=== PATIENT | male | born 1975 | race Caucasian/White ===

== ENCOUNTER → 2018-09-26 15:27 | Outpatient (CLI) | payer OTHER, SELFPAY ==
[2016-02-06 18:03] VITALS: BMI 28.6
--- NOTE | 2018-09-26 12:30 | SEP_PTH ---
PATIENT: FINA HUNT LOC: [facility] U#:[id number] AGE/SX: 49/M ROOM: RE09/26/[address]: Dr. Pipo Meyers MD : 1975 BED: DIS: SPEC #: [id number] RECD: 09/26/18 15:16 STATUS: NATY JABARI #: [id number] PAMELLA: 09/26/18 12:[address]: Pipo Meyers DEPT: SURGICAL PATHOLOGY RECD BY: Lorenzo Birmingham ENTERED: 09/27/18 14:09 SP TYPE: SEPTUM OTHR DR: Dr. Jakob Bello, [facility] Tissues: Nasal septum, NOS Procedures: Decalcification bone/plaque Surgery Specimen Level III HEADER OPERATION: Septoplasty, submucous resection inferior turbinates PRE-OP DIAGNOSIS: Nasal congestion, hypertrophy of nasal turbinates, deviated nasal septum TISSUE SUBMITTED: Septum MICROSCOPIC DIAGNOSIS Nasal cartilage and bone, septoplasty: Hyaline cartilage and bone with focal reparative and reactive change (clinically deviated septum). AM:lisette 09/30/18 MICROSCOPIC DESCRIPTION Slides are reviewed. GROSS DESCRIPTION Received is one container labeled with the patient's name and not further designated. The specimen consists of multiple fragments of cartilage and bone that in aggregate measure 5 x 3 x 0.3 cm. The entire specimen is submitted in two cassettes after decalcification. / SJ:lisette 09/27/18 TC:5 CPT: 72915, 49290
== END ==
PROVIDERS: Family Provider Student in an Organized Health Care Education/Training Program; PCP Student in an Organized Health Care Education/Training Program; Referring Provider Otolaryngology; Visit Provider Otolaryngology
DX: J34.3 Hypertrophy of nasal turbinates (principal); J34.2 Deviated nasal septum; R09.81 Nasal congestion
CPT/HCPCS: 88304; 88311

== ENCOUNTER 2019-12-22 10:30 | Emergency (ER) | payer OTHER, SELFPAY ==
[2019-12-22 10:31] VITALS: BP 158/89; PULSE 64; RESP 16; TEMP 36.2; O2SAT 98; BMI 29.1
--- NOTE | 2019-12-22 10:42 | ED.DCSUM_ITS ---
History of Present Illness Informant: Patient - Abdominal Pain/Flank Pain Onset: Yesterday Context: Gradual Onset Timing: Continuous Quality: Burning Location: Epigastric Current Severity: Moderate Maximum Severity: Severe Worsened by: Food Relieved by: Remaining Still - Nausea/Vomiting/Emesis GI Symptom: Nausea. Negative for: Vomiting Onset: Today - Diarrhea/Melena/Hematochezia GI Symptom: Hematochezia. Negative for: Diarrhea, Melena Onset: Today Stool Quality: KLAUDIA per rectum Severity: Mild Associated Symptoms: Negative for: Dysuria, Frequency, Hematuria, Urgency Narrative: 43-year-old male who denies any significant past medical history presents to the emergency department with epigastric abdominal pain. Started 2 weeks ago has been intermittent. He also has been having bright red blood per rectum. He noticed it this morning when he went to have a bowel movement. It was in the toilet bowl. He has not had any bleeding since that time. He is not lightheaded or dizzy. He is not on a blood thinner. He is not a fever. Denies any vomiting. Denies back pain. He is not lightheaded or dizzy. No recent travel. No sick contacts. No recent antibiotic use. History of similar symptoms a few years ago when he was diagnosed with Salmonella and colitis Prior similar symptoms: Yes Recent Illness/Hospitalization: No <Kenrick Caba - Last Filed: 12/22/19 12:42> <Derek Gallagher - Last Filed: 12/22/19 15:27> Chief Complaint: Abd Pain Past Medical History Prior records reviewed: Yes Past Medical History: None Surgical History: cholecystectomy Lives: With Family Smoking Status: Former smoker Alcohol: Occasional Drugs: None - Family History Maternal Family History: Reports: Diabetes Paternal Family History: Reports: No pertinent history <Kenrick Caba - Last Filed: 12/22/19 12:42> <Derek Gallagher - Last Filed: 12/22/19 15:27> - Allergies and Home Meds Allergies/Adverse Reactions: Allergies Penicillins [PCN] Allergy (Verified 12/22/19 10:31) Unknown Primary Care Physician: Jakob Bello DO [Primary Care Provider] - 12/25/19 Review of Systems All systems negative except as indicated General: Denies: Chills, Fever, Sweats Eyes: Denies: Visual changes - bilaterally, Diplopia ENT: Denies: Rhinorrhea, Sore throat Cardiovascular: Denies: Chest pain, Palpitations Respiratory: Denies: Dyspnea, Cough, Dyspnea on exertion Gastrointestinal: Reports: Abdominal pain, Nausea, Hematochezia. Denies: Vomiting, Diarrhea, Constipation, Melena Genitourinary: Denies: Dysuria, Hematuria, Frequency Musculoskeletal: Denies: Back pain, Extremity Pain Skin: Denies: Rash, Wounds Neurological: Denies: Headache, Weakness, Numbness <Kenrick Caba - Last Filed: 12/22/19 12:42> Physical Exam Vital Signs/Narrative: Vital Signs Temp Pulse Resp BP Pulse Ox 12/22/19 10:31 97.2 F L 64 16 158/89 H 98 Inital Vital Signs reviewed: Yes General: Well nourished, Well developed, No Acute Distress Head: Normocephalic, Atraumatic Eyes: Perrl, EOMI ENT: Moist mucous membranes, No rhinorrhea Neck: Supple, Nontender Cardiovascular: Regular rate, Regular rhythm, No murmurs Respiratory: No distress, CTA bilaterally, Chest nontender Abdomen: Soft, Nondistended, Normal bowel sounds, Tender - Epigastric tenderness to palpation. Negative for: Guarding, Rebound tenderness Back: Nontender, Normal Inspection Extremities: Nontender, No edema Skin: Normal color, No rash Neurological: Alert, Oriented x3, Cranial nerves II-XII grossly intact, Normal Strength, Normal Sensation Psychological: Normal affect, Normal Mood <Kenrick Caba - Last Filed: 12/22/19 12:42> Vital Signs/Narrative: Vital Signs Resp 12/22/19 12:36 18 <Derek Gallagher - Last Filed: 12/22/19 15:27> Diagnostic/Tx/Re-eval CT: Abdomen and Pelvis Impressions Abdomen/Pelvis CT 12/22/19 10:47 IMPRESSION: Fatty infiltration of the liver. Electronically Signed: Wayne Birch, at 11:53 EDT , Service support , 12/22/19 10:47 Abdomen/Pelvis W IV Cont ONLY [CT] Stat Laboratory Results 12/22/19 12/22/19 12/22/19 10:40 10:50 10:50 WBC 7.3 RBC 4.91 Hgb 15.4 Hct 45.2 MCV 92.1 MCH 31.4 MCHC 34.1 RDW Std Deviation 44.0 H RDW Coeff of Asiya 13.0 Plt Count 205 MPV 11.1 Immature Gran % (Auto) 0.400 Neut % (Auto) 64.3 Lymph % (Auto) 25.2 Canadian % (Auto) 6.7 Eos % (Auto) 3.0 Baso % (Auto) 0.4 Absolute Neuts (auto) 4.7 Absolute Lymphs (auto) 1.83 Nucleated RBC % 0 Sodium 140 Potassium 4.1 Chloride 110 H Carbon Dioxide 25.0 Anion Gap 5 BUN 10 Creatinine 1.07 Estim Creat Clear Calc 97.71 Est GFR (MDRD) Af Amer 97 Est GFR (MDRD) Non-Af 80 BUN/Creatinine Ratio 9.3 L Glucose 87 Calcium 8.9 Total Bilirubin 0.30 AST 22 ALT 39 Alkaline Phosphatase 113 Total Protein 8.0 Albumin 3.7 Globulin 4.3 H Albumin/Globulin Ratio 0.9 Lipase 82 Urine Color Yellow Urine Clarity Clear Urine pH 7.0 Ur Specific [place] 1.005 Urine Protein Negative Urine Glucose (UA) Normal Urine Ketones Negative Urine Occult Blood Negative Urine Nitrite Negative Urine Bilirubin Negative Urine Urobilinogen Normal Ur Leukocyte Esterase Negative Urine RBC 0 SEEN Urine WBC 0 SEEN Ur Squamous Epith Cells 0 SEEN Urine Bacteria 0 SEEN Urine Mucus 0 SEEN - Medical Decision Making Patient's laboratory work-up was unremarkable. His blood counts are stable. He has not had any bleeding during his stay in the emergency department is over [address] scan was unremarkable as well. He was reassured. He has a history of hemorrhoids. We feel his symptoms could be due to internal hemorrhoids. He has been constipated. Therefore we will prescribe him MiraLAX and Colace to increase his fluid intake and follow-up with his doctor on Wednesday or return to the emergency department for worsening symptoms which we discussed. Repeat exam his abdomen is soft and nontender and the patient is tolerating by mouth at this time. <Kenrick Caba - Last Filed: 12/22/19 12:42> - Medical Decision Making Patient was seen with me. I did a [id number] examination with the patient. Patient presents with abdominal pain and rectal bleeding. Patient states that this has been intermittent. Patient noted red blood in the stool. Patient denies any fevers or chills. Patient denies any nausea or vomiting. Patient denies any chest pain or shortness of breath. Vital signs are stable. Patient is afebrile. Patient is in no acute distress. Oral mucosa is pink and moist. Neck is supple. Trachea is midline. There is no JVD. Heart was regular rate and rhythm. Lungs are clear and equal bilaterally. Abdomen is soft. Bowel sounds are normal. There is mild tenderness. There is no rebound or guarding noted. CBC is normal. Patient is not anemic. CT scan of the abdomen pelvis was obtained. There is no acute abnormality. Patient was feeling better on reevaluation. Patient was advised that his bleeding could be due to internal hemorrhoids. Patient was instructed to follow-up with his primary care physician in 5 to 7 days. Patient understood and was agreeable with the plan. All questions were answered. <Derek Gallagher - Last Filed: 12/22/19 15:27> ED Disposition <Kenrick Caba - Last Filed: 12/22/19 12:42> <Derek Gallagher - Last Filed: 12/22/19 15:27> - Plan for ED Patient: Disposition: Home or Assisted Living Diagnosis: Blood in stool, Abdominal pain, GERD (gastroesophageal reflux disease) Instructions: ED Hematochezia Stable Prescriptions: Docusate Sodium [Colace] 100 mg PO BID #10 cap Prescription Printed Polyethylene Glycol 3350 [Miralax] 17 gm PO QHS #14 packet Prescription Printed Famotidine [Pepcid] 20 mg PO BID #28 tab Prescription Printed Referrals: Jakob Bello DO [Primary Care Provider] - 12/25/19
[2019-12-22 10:46] LABS: Bacteria 0 SEEN /hpf (None Seen); Mucous, Urine 0 SEEN /hpf (<or=2+); Red Blood Cells-Urine 0 SEEN /hpf (0-5); Squamous Epithelial Cells - UA 0 SEEN /hpf (0-5); White Blood Cells 0 SEEN /hpf (0-5)
--- NOTE | 2019-12-22 10:47 | CT_ITS ---
STUDY: CT ABDOMEN AND PELVIS WITH CONTRAST REASON FOR EXAM: Male, 43 years old. ABDOMINAL PAIN WITH RECTAL BLEEDING RADIATION DOSAGE (If Supplied By Facility): CTDIvol = ( 11.96 ) mGy, DLP = ( 595.16 ) mGycm TECHNIQUE: Transaxial images were obtained from the dome of the diaphragm to the symphysis pubis without oral contrast. IV 100mL Isovue-300 was administered. Sagittal and coronal images were reconstructed. Individualized dose optimization techniques were used for this CT. COMPARISON: Comparison is made with prior study dated 12/03/2014. FINDINGS: The visualized lung bases are unremarkable. The visualized portions of the heart are within normal limits. There is decreased attenuation of the liver consistent with steatosis. The patient is status post cholecystectomy. Normal spleen. Normal pancreas. Normal bilateral adrenal glands. Normal right kidney. Normal left kidney. Normal visualized stomach. Normal small intestine. Normal colon. The appendix is visualized and appears normal. Normal abdominal aorta. Normal inferior vena cava. Normal retroperitoneum. Normal urinary bladder. There is a small umbilical hernia containing fat. Normal osseous structures. CT/Abdomen/Pelvis W IV Cont ONLY IMPRESSION: Fatty infiltration of the liver. Electronically Signed: Wayne Birch, at 11:53 EDT , Service support ,
[2019-12-22 10:49] LABS: Color, Urine Yellow (Yellow); Glucose, Dipstick Normal (Normal); Ketone-Dipstick Negative (Negative); Leukocyte Esterase-Dipstick Negative /ul (Negative); Nitrite-Dipstick Negative (Negative); Occult Blood-Urine Negative /ul (Negative); Protein-Dipstick Negative (Negative); Specific Gravity, Urine 1.005 (1.002-1.030); Urine Bilirubin Dipstick Negative (Negative); Urine Clarity Clear (Clear); Urine Urobilinogen Normal (Normal)
[2019-12-22] MEDS: 0.9% Normal Saline 1,000 ML 999 ML IV (10:59)
[2019-12-22 11:01] LABS: Absolute Lymphocyte Count 1.83 X10^3/uL (0.83-4.51); Absolute Neutrophil Count 4.7 X10^3/uL (2.0-7.7); Basophil# 0.03 X10^3/uL; Basophil% 0.4 % (0-1); Eosinophil# 0.22 X10^3/uL; Hematocrit 45.2 % (40-54); Hemoglobin 15.4 g/dL (13.0-16.5); Lymphocyte # 1.83 X10^3/ul (4.0); Lymphocyte % 25.2 % (19-41); Mean Corp Hgb Conc 34.1 g/dL (32-36); Mean Corpuscular Hgb 31.4 pg (27.0-32.0); Mean Corpuscular Volume 92.1 fL (80-94); Mean Platelet Vol. 11.1 fl (6.2-12.0); Monocyte# 0.49 X10^3/uL; Monocyte% 6.7 % (0-10); NRBC Flagged by Analyzer 0 % (0-5); Neutrophil # 4.67 X10^3/uL (2.7-7.7); Neutrophil % 64.3 % (47-70); Platelet Count 205 K/mm3 (150-450); Red Blood Count 4.91 M/mm3 (4.6-6.2); White Blood Count 7.3 K/mm3 (4.4-11.0)
[2019-12-22 11:18] LABS: ALB/GLOB Ratio 0.9 RATIO (0.9-2.4); AST(SGOT) 22 U/L (15-37); Alanine Aminotransfer ALT/SGPT 39 U/L (16-61); Albumin, Serum 3.7 g/dL (3.2-5.0); Alkaline Phosphatase 113 U/L (45-117); Anion Gap 5 (5-15); BUN 10 mg/dL (7-18); BUN/Creat Ratio 9.3 RATIO (10-20); Calcium,Total 8.9 mg/dL (8.5-10.1); Chloride 110 mmol/L (98-107); Creatinine, Serum 1.07 mg/dL (0.70-1.30); EST Glomerular Filtration Rate 80 mL/min (>60); Est Glom Filt Rate - Afr Amer 97 mL/min (>60); Estimated Creatinine Clearance 97.71 ml/min; Globulin 4.3 g/dL (2.2-4.2); Glucose 87 mg/dL (74-106); Lipase 82 U/L (73-393); Potassium 4.1 mmol/L (3.5-5.1); Sodium Level 140 mmol/L (136-145)
[2019-12-22 12:36] VITALS: RESP 18
== END 2019-12-22 13:04 | disposition home or self-care (01) ==
PROVIDERS: Emergency Provider Physician Assistant Medical; PCP Student in an Organized Health Care Education/Training Program
DX: R19.5 Other fecal abnormalities (principal); R10.13 Epigastric pain; K21.9 Gastro-esophageal reflux disease without esophagitis; Z87.891 Personal history of nicotine dependence
CPT/HCPCS: 74177; 80053; 81001; 83690; 85025; 96360; 96361; 99283; J7030; Q9967; A4216